=== PATIENT | male | born 1975 | race Caucasian/White ===

== ENCOUNTER 2017-11-06 12:56 | Inpatient (IN) | payer OTHER ==
--- NOTE | 2017-11-06 13:26 | PDOC ---
Attending Attestation - Resident Resident Name: FierroMoshe - ED Attending Attestation I have performed the following: I have examined & evaluated the patient, The case was reviewed & discussed with the resident, I agree w/resident's findings & plan, Exceptions are as noted - HPI HPI: 42 yo M presents with 2 day history of abd pain. He just returned from a trip to [facility], a few of his fellow travelers became ill. He denies f/c, vomiting, diarrhea. He has had nausea and upper abd pain that he describes as colicky, crampy. It waxes and wanes. No prior similar symptoms. No prior history of gallstones. - Physicial Exam PE: GENERAL: Awake, alert, and fully oriented, in no acute distress. Well- appearing. HEAD: No signs of trauma EYES: PERRLA, EOMI, sclera anicteric, conjunctiva clear ENT: Auricles normal inspection, hearing grossly normal, nares patent, oropharynx clear without exudates. Dry mucosa NECK: Normal ROM, supple, no lymphadenopathy, JVD, or masses LUNGS: Breath sounds equal, clear to auscultation bilaterally. No wheezes, and no crackles HEART: Regular rate and rhythm, normal S1 and S2, no murmurs, rubs or gallops ABDOMEN: Soft, +mod RUQ tenderness, normoactive bowel sounds. No guarding, no rebound. No masses EXTREMITIES: Normal range of motion, no edema. No clubbing or cyanosis. No cords, erythema, or tenderness NEUROLOGICAL: Cranial nerves II through XII grossly intact. Normal speech, normal gait SKIN: Warm, Dry, normal turgor, no rashes or lesions noted. - Medical Decision Making Pt with RUQ pain after recent trip. No diarrhea to indicate food poisoning. He drinks daily. Just quit smoking. Will obtain labs including basics and lipase. DDx pancreatitis vs gallstones.
--- NOTE | 2017-11-06 13:40 | PDOC ---
History of Present Illness - General Chief Complaint: Pain Stated Complaint: KEM PAIN Time Seen by Provider: 11/06/17 13:00 History Source: Patient, Spouse ( at bedside for interview.) Exam Limitations: No Limitations - History of Present Illness Travel History: Yes (Returned from [facility] 1 week ago.) Initial Comments: 42 y/o male presenting to ER via private auto at referral of local urgent care. Pt complaining of two days of upper abdominal pain with nausea/vomiting and malaise. Symptoms begin yesterday after eating lunch. Pain was initially diffusely spread across RUQ, LUQ, and epigastrum. Throughout the course of the day, the pain began to localize to RUQ and increase in intensity. Nausea and vomiting persisted; described as non-bloody, non-bilious. Denies constipation and diarrhea; last BM yesterday; continues to pass flatus. Denies fever, chills , or diaphoresis. denies noticing change in pt's skin or eyes. Pt denies previous similar episodes. Pt expressed concern that symptoms may be related to food consumed a week ago while in [facility]. Endorses drinking approx. 3 alcoholic drinks per night. Former smoker, quit 1 week ago. Denies illicit drug use. Hep A vaccination 15 years ago. Past History - Travel Traveled outside of the country in the last 30 days: Yes If so, where?: [facility] - Past Medical History Allergies/Adverse Reactions: Allergies Allergy/AdvReac Type Severity Reaction Status Date / Time No Known Allergies Allergy Verified 11/06/17 12:57 Home Medications: Ambulatory Orders NK [No Known Home Medication] 11/06/17 COPD: No GI Disorders: No Disorders: No Liver Disease: No - Surgical History Abdominal Surgery: No Orthopedic Surgery: Yes (R Knee) - Family Disease History Family Disease History: CA: Mother (Breast Cancer) - Immunization History Immunization Up to Date: Yes - Suicide/Smoking/Psychosocial Hx Smoking History: Former smoker Have you smoked in the past 12 months: Yes If you are a former smoker, when did you quit?: LAST WEEK Information on smoking cessation initiated: Yes 'Breaking Loose' booklet given: 11/06/17 Hx Alcohol Use: Yes (3 DRINKS PER DAY) Drug/Substance Use Hx: No Substance Use Type: Alcohol Lives with/in: spouse/SO Review of Systems - Review of Systems Able to Perform ROS?: Yes Is the patient limited German proficient: No Constitutional: Yes: Malaise, Weakness. No: Chills, Diaphoresis, Fever HEENTM: No: Recent change in vision, Throat Pain Respiratory: No: Cough, Shortness of Breath Cardiac (ROS): No: Chest Pain, Edema, Syncope ABD/GI: Yes: Nausea, Poor Fluid Intake, Vomiting, Abdominal cramping. No: Abd. Pain w/ defecation, Blood Streaked Bowels, Constipated, Diarrhea, Difficulty Swallowing, Rectal Bleeding, Tarry Stools : No: Burning, Dysuria, Discharge, Flank Pain, Hematuria Musculoskeletal: No: Back Pain, Muscle Weakness Integumentary: No: Rash Neurological: Yes: Headache. No: Numbness, Paresthesia Hematologic/Lymphatic: No: Easy Bleeding, Easy Bruising *Physical Exam - Vital Signs Last Vital Signs Temp Pulse Resp BP Pulse Ox 98.6 F 77 20 134/97 98 11/06/17 12:57 11/06/17 12:57 11/06/17 12:57 11/06/17 12:57 11/06/17 12:57 - Physical Exam Comments: Constitutional: Well-developed, well-nourished male in no acute distress and mild discomfort. Found semi-fowlers in hospital bed. Ambulated without assistance to exam room. Alert and oriented x4. Answered all questions appropriately and completely. Speech was non-labored, non-pressured. HEENT: Normocephalic. No obvious external signs of trauma. Hearing grossly normal. No nasal discharge. Sclerae white. Conjunctiva moist and not injected. Oral cavity and pharynx normal with moist mucosal membranes: No inflammation, swelling, exudate, or lesions. Neck is supple, trachea is midline. Cardiovascular: Regular rate and regular rhythm. No murmur, rubs, clicks, or gallops. Peripheral pulses: Radial pulses full. Respiratory: Equal chest rise and fall. Clear to auscultation bilaterally. No stridor, no wheezing, no rhonchi. Gastrointestinal: abdomen is tender to RUQ and epigastrium with guarding and grimace, otherwise soft and non-distended. No hepatosplenemegaly. No pulsatile masses. No overlying skin lesions or obvious signs of trauma. Neuro: Alert and oriented. Moving all four extremities spontaneously. Psych: Affect: appropriate. Mood: normal. Skin: Warm, dry, and intact. No rashes, bruising, or lesions. : No CVA tenderness to R or L. ED Treatment Course - LABORATORY CBC & Chemistry Diagram: 11/06/17 14:18 11/06/17 14:18 Medical Decision Making - Medical Decision Making 42 y/o male complaining of RUQ abdominal pain with nausea and vomiting for the past two days. Denies h/o similar. Afebrile. Vitals unremarkable for tachycardia or hypotension. Physical exam revealed RUQ tenderness with grimace and guarding - positive Bell's sign; no peritoneal signs. Suspect cholecystitis or pancreatitis. Differential to include hepatitis, choledocolethiasis. PUD, and gastritis. Will obtain CBC, CMP, lipase, and RUQ U/ S. Ordered NS bolus and IV tylenol for pain control. CBC revealed mild leukocytosis to 13. CMP remarkable for T. Bili elevated to 1.7. Lipase not elevated. LFTs not elevated. U/S remarkable for mildly thickened gallbladder wall with multiple canaliculi noted. Positive gearcase assembler's Bell's sign. No evidence of biliary duct dilation. Diffuse fatty infiltrates of liver. 11/06/17 15:22 Pt likely experiencing acute cholecystitis. Telephone consult with Dr. Monson who agrees to admit pt to his service at [facility]. Requested order for MRCP without contrast. Ground ambulance transport to be arranged. Discussed results and plan for transfer and admission with pt. Expressed verbal understanding and agreement with plan. Answered all questions. Pt transferred via ambulance to [facility] without further incident. *DC/Admit/Observation/Transfer Diagnosis at time of Disposition: Cholecystitis - Discharge Dispostion Condition at time of disposition: Good Decision to Admit order: Yes - Referrals - Patient Instructions - Post Discharge Activity
[2017-11-06] MEDS ORDERED: ACETAMINOPHEN 1000 MG/100 ML VIAL (NON FORMULARY) IVPB ONE (13:41)
[2017-11-06] MEDS ORDERED: SODIUM CHLORIDE 0.9% 500 ML INFUS.BAG IV ONE (13:41)
[2017-11-06] MEDS ORDERED: ACETAMINOPHEN INJECTION 100 ML IVPB ONE (14:22)
[2017-11-06 14:24] LABS: BASO % 0.2 % (0-2.0); EOS % 0.2 % (0-4.5); HEMOGLOBIN 16.3 GM/dl (11.7-16.9)
[2017-11-06 14:28] LABS: HEMATOCRIT 47.3 % (35.4-49); LYMPH % 11.1 % (8-40); MCH 31.3 pg (25.7-33.7); MCHC 34.5 g/dl (32.0-35.9); MEAN CELL VOLUME 90.8 fl (80-96); MEAN PLT VOLUME 7.7 fl (7.5-11.1); MONO % 8.5 % (3.8-10.2); PLATELET COUNT 293 K/MM3 (134-434); RBC 5.21 M/mm3 (4.00-5.60); RDW 11.7 % (11.9-15.9); WHITE BLOOD COUNT 13.1 K/mm3 (4.0-10.8)
[2017-11-06 14:39] LABS: ALBUMIN 4.4 g/dl (3.5-5.0); ALK PHOS 40 U/L (32-92); ANION GAP 5 (8-16); BILIRUBIN,TOTAL 1.7 mg/dl (0.2-1.0); BLOOD UREA NITROGEN 9 mg/dl (7-18); CALCIUM 8.9 mg/dl (8.4-10.2); CHLORIDE 100 mmol/L (98-107); CO2 30 mmol/L (22-28); CREATININE 0.9 mg/dl (0.6-1.3); GLUCOSE,RANDOM 105 mg/dl (74-106); POTASSIUM 3.6 mmol/L (3.5-5.1); SGOT/AST 29 U/L (10-42); SGPT/ALT 27 U/L (10-40); SODIUM 135 mmol/L (136-145); TOT PROT 7.5 g/dl (6.4-8.3)
[2017-11-06 15:11] LABS: LIPASE 229 U/L (73-393)
--- NOTE | 2017-11-06 16:04 | HP ---
Admitting History and Physical - Admission Chief Complaint: abdominal pain History of Present Illness: 42yo male no significant PMH presents with 2 day history of abd pain. He just returned from a trip to [facility], a few of his fellow travelers became ill. He denies f/c, vomiting, diarrhea. He has had nausea and upper abd pain that he describes as colicky, crampy. It waxes and wanes. No prior similar symptoms. No prior history of gallstones. denies fevers and chills at home, fever 100.7 on eval. Pain after a large lunch. no previous episodes of similar RUQ pain. we were asked to assess. History Source: Patient, Medical Record Limitations to Obtaining History: No Limitations - Smoking History Smoking history: Former smoker Have you smoked in the past 12 months: Yes If you are a former smoker, when did you quit?: LAST WEEK - Alcohol/Substance Use Hx Alcohol Use: Yes (3 DRINKS PER DAY) - Social History ADL: Independent History of Recent Travel: Yes ([facility]) Home Medications - Allergies Allergies/Adverse Reactions: Allergies Allergy/AdvReac Type Severity Reaction Status Date / Time No Known Allergies Allergy Verified 11/06/17 12:57 - Home Medications Home Medications: Ambulatory Orders NK [No Known Home Medication] 11/06/17 Review of Systems - Review of Systems Constitutional: denies: Chills, Fever Eyes: denies: Blurred Vision, Recent Change in Vision HENT: denies: Difficult Swallowing, Throat Pain Neck: denies: Stiffness, Tenderness Cardiovascular: denies: Chest Pain, Palpitations Respiratory: denies: Cough, SOB Gastrointestinal: denies: Abdominal Pain, Constipation, Diarrhea Genitourinary: denies: Discharge, Dysuria Breasts: reports: No Symptoms Reported. denies: Pain Musculoskeletal: denies: Muscle Pain, Muscle Weakness Integumentary: denies: Erythema, Rash, Wound Neurological: denies: Seizure, Syncope Endocrine: denies: Unexplained Weight Gain, Unexplained Weight Loss Hematology/Lymphatic: denies: Easily Bruised, Excessive Bleeding Psychiatric: denies: Anxiety, Depression Physical Examination Vital Signs: Vital Signs Temperature 98.6 F 11/06/17 12:57 Pulse Rate 77 11/06/17 12:57 Respiratory Rate 20 11/06/17 12:57 Blood Pressure 134/97 11/06/17 12:57 O2 Sat by Pulse Oximetry (%) 98 11/06/17 12:57 Constitutional: Yes: Well Nourished, No Distress, Calm Eyes: Yes: Conjunctiva Clear, EOM Intact HENT: Yes: Atraumatic, Normocephalic Neck: Yes: Supple, Trachea Midline Cardiovascular: Yes: Regular Rate and Rhythm, S1, S2 Respiratory: Yes: Regular, CTA Bilaterally Gastrointestinal: Yes: Normal Bowel Sounds, Soft, Tenderness, Tenderness, Epigastrium. No: Tenderness, Rebound ...Rectal Exam: Yes: Deferred Renal/: No: CVA Tenderness - Left, CVA Tenderness - Right Musculoskeletal: No: Muscle Pain, Muscle Weakness Extremities: No: Cool, Cyanosis Edema: No Peripheral Pulses WNL: Yes Peripheral Pulses: Left Radial: 2+, Right Radial: 2+, Left Doralis Pedis: 2+, Right Dorsalis Pedis: 2+ Integumentary: No: Jaundice, Rash Neurological: Yes: Alert, Oriented Psychiatric: Yes: Alert, Oriented Labs: CBC, BMP 11/06/17 14:18 11/06/17 14:18 Imaging - Results Ultrasound: Report Reviewed, Image Reviewed (GB wall thickening) MRI: Report Reviewed, Image Reviewed (acute cholecystitis) Problem List - Problems (1) Calculus of gallbladder with acute cholecystitis Assessment/Plan: 42yo male with acute cholecystitis no sign of choledocholithiasis on MRCP NPO and IVF hydration IV antibiotics per ID OR for Lap Cholecystectomy Discussed with patient risks, benefits and alternatives of laparoscopic possible open cholecystectomy, including but not limited to bleeding, infection , injury to adjacent structures, leak or injury, intraabdominal abscess, incisional hernia, need for further procedures, ; alternatives include antibiotics, delayed or no surgery - risks of this include failure of nonoperative therapy, perforation, sepsis, recurrence, . Patient desires to proceed with operation - will take to OR for above. Informed consent signed for same. Code(s): K80.00 - CALCULUS OF GALLBLADDER W ACUTE CHOLECYST W/O OBSTRUCTION Qualifiers: Biliary obstruction: without biliary obstruction Qualified Code(s): K80.00 - Calculus of gallbladder with acute cholecystitis without obstruction (2) Cholecystitis Code(s): K81.9 - CHOLECYSTITIS, UNSPECIFIED (3) Leukocytosis Code(s): D72.829 - ELEVATED WHITE BLOOD CELL COUNT, UNSPECIFIED Qualifiers: Leukocytosis type: bandemia Qualified Code(s): D72.825 - Bandemia (4) Bilirubinemia Code(s): E80.6 - OTHER DISORDERS OF BILIRUBIN METABOLISM
[2017-11-06] MEDS ORDERED: ONDANSETRON 4 MG/2 ML VIAL IVPUSH PRN (16:20)
[2017-11-06] MEDS: LACTATED RINGERS SOLUTION 1,000 ML IV SCH ×2 (16:46→19:38)
[2017-11-06] MEDS ORDERED: morphine SULFATE 4 MG/ML VIAL ONE (17:14)
[2017-11-06] MEDS ORDERED: ONDANSETRON 4 MG/2 ML VIAL ONE (17:20)
[2017-11-06] MEDS: morphine SULFATE 4 MG/ML VIAL IVPUSH PRN (17:21)
[2017-11-06] MEDS ORDERED: CEFOXITIN SODIUM 2 GM in DEXTROSE 5%-WATER - 100 ML IVPB SCH (18:00)
[2017-11-06 20:13] VITALS: BMI 25.9
[2017-11-06] MEDS: IBUPROFEN 600 MG TABLET (FP) PO PRN (20:42)
[2017-11-07] MEDS ORDERED: DEXTROSE 5%-WATER - 50 ML IVPB ONE ×3 (02:03→16:52)
[2017-11-07] MEDS ORDERED: PIPERACILLIN/TAZOBACTAM 3.375 GM VIAL IVPB ONE ×3 (02:03→16:52)
[2017-11-07] MEDS: PIPERACILLIN/TAZOB 3.375 GM 3.375 GM in DEXTROSE 5%-WATER - 50 ML IVPB SCH ×2 (02:12→10:10)
[2017-11-07] MEDS: morphine SULFATE 4 MG/ML VIAL IVPUSH PRN ×2 (06:05→20:09)
[2017-11-07] MEDS: IBUPROFEN 600 MG TABLET (FP) PO PRN ×2 (06:05→18:58)
[2017-11-07] MEDS: LACTATED RINGERS SOLUTION 1,000 ML IV SCH ×2 (06:30→13:00)
[2017-11-07 08:58] LABS: HEMATOCRIT 44.9 % (35.4-49); HEMOGLOBIN 15.6 GM/dL (11.7-16.9); MCHC 34.8 g/dl (32.0-35.9); MEAN CELL VOLUME 89.1 fl (80-96); MEAN PLT VOLUME 7.7 fl (7.5-11.1); PLATELET COUNT 280 K/MM3 (134-434); RBC 5.04 M/mm3 (4.00-5.60); RDW 12.5 % (11.9-15.9); WHITE BLOOD COUNT 13.1 K/mm3 (4.0-10.0)
--- NOTE | 2017-11-07 08:59 | OP ---
Operative Note - Note: Operative Date: 11/07/17 Pre-Operative Diagnosis: Acute cholecystitis Operation: Laparoscopic Cholecystectomy Findings: Inflammed Gallbladder, critical view identified. counts correct. Post-Operative Diagnosis: Same as Pre-op Surgeon: Ashkan Monson Anesthesiologist/MUSHROOM GROWTH MEDIA MIXER: Charles Pace Anesthesia: General, Local (0.5% MARCAINE 20ml) Estimated Blood Loss (mls): 10 Fluid Volume Replaced (mls): 400 Operative Report Dictated: Yes
[2017-11-07 09:25] LABS: CALCIUM 8.7 mg/dL (8.5-10.1); CHLORIDE 103 mmol/L (98-107); POTASSIUM 4.1 mmol/L (3.5-5.1); SODIUM 140 mmol/L (136-145)
[2017-11-07 09:31] LABS: ALK PHOS 51 U/L (45-117); ANION GAP 10 (8-16); BILIRUBIN,TOTAL 1.6 mg/dL (0.2-1.0); BLOOD UREA NITROGEN 10 mg/dL (7-18); CO2 27 mmol/L (21-32); CREATININE 1.1 mg/dL (0.7-1.3); GLUCOSE,RANDOM 94 mg/dL (74-106); LIPASE 112 U/L (73-393); SGOT/AST 32 U/L (15-37); SGPT/ALT 39 U/L (12-78); TOT PROT 7.3 g/dl (6.4-8.2)
[2017-11-07] MEDS ORDERED: fentaNYL CITRATE 250 MCG/5 ML VIAL ONE (10:32)
[2017-11-07] MEDS ORDERED: MIDAZOLAM HCL 2 MG/2 ML SINGLE DOSE VIAL ONE (10:32)
[2017-11-07] MEDS ORDERED: DEXAMETHASONE SOD PHOSPHATE 4 MG/1 ML VIAL ONE ×2 (10:34→11:39)
[2017-11-07] MEDS ORDERED: ONDANSETRON 4 MG/2 ML VIAL ONE ×2 (10:34→11:39)
[2017-11-07] MEDS ORDERED: PROPOFOL 20 ML ONE (10:35)
[2017-11-07] MEDS ORDERED: LIDOCAINE HCL/PF 2% SDV 5ML VIAL ONE (10:35)
[2017-11-07] MEDS ORDERED: ROCURONIUM BROMIDE 50 MG/5 ML VIAL ONE ×2 (10:36→11:13)
[2017-11-07] MEDS ORDERED: BUPIVACAINE HCL/PF 0.5% (5MG/ML) 10 ML VIAL ONE (11:19)
[2017-11-07] MEDS ORDERED: NEOSTIGMINE METHYLSULFATE 0.5 MG/ML - 10 ML MDV ONE (11:33)
[2017-11-07] MEDS ORDERED: ACETAMINOPHEN INJECTION 100 ML IVPB ONE (11:33)
[2017-11-07] MEDS ORDERED: ACETAMINOPHEN 1000 MG/100 ML VIAL (NON FORMULARY) IVPB ONE (11:37)
[2017-11-07] MEDS ORDERED: BUPIVACAINE HCL/PF (5 MG/ML) 30 ML VIAL IJ ONE ×3 (11:38)
[2017-11-07] MEDS ORDERED: BENZOIN/ALOE VERA/STORAX/TOLU 58 ML BOTTLE ONE (11:47)
[2017-11-07] MEDS ORDERED: ONDANSETRON 4 MG/2 ML VIAL IVPUSH PRN (12:33)
[2017-11-07] MEDS ORDERED: PIPERACILLIN/TAZOB 3.375 GM 3.375 GM in DEXTROSE 5%-WATER - 50 ML IVPB ONE (18:00)
--- NOTE | 2017-11-07 19:02 | CON.ID ---
Consult - History of Present Illness History of Present Illness: 42 y.o. male with no significant PMH presented with c/o upper abdominal pain/n/ v that began 2 days ago, noted after eating. Denied fever/chills/diarrhea. He returned one week ago from a trip to [facility] where he and his family went to a wedding. States at the time several people developed n/v and he assumed he had a gastrointestinal illness. Pt states he drinks alcohol almost daily, about 3 drinks/day. In the ER pt was noted to have a mild leukocytosis and US of abd revealed cholelithiasis and GB wall thickening. Pt is now s/p laparascopic cholecystectomy. Pain is controlled. He has no other specific complaints. 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: Alzheimer's, CVA, Dementia, Migraine, Multiple Sclerosis, Peripheral Neuropathy, Parkinson's, Seizure, Syncope, TIA, Vertigo, Other Cardio/Vascular: No: AFIB, Aneurysm, Aortic Insufficiency, Aortic Stenosis, CAD , CHF, Deep Vein Thrombosis, HTN, Hyperlipdemia, OH, Mitral Insufficiency, Mitral Stenosis, Murmur, Pulmonary Hypertension, Other Pulmonary: No: Asthma, Bronchitis, Cancer, COPD, O2 Dependent, Pneumonia, Previously Intubated, Pulmonary Embolus, Pulmonary Fibrosis, Sleep Apnea, Other Gastrointestinal: No: Ascites, Cancer, Constipation, Crohn's Disease, Diverticulitis, Diverticulosis, Esophageal Varices, Gastritis, GERD, GI Bleed, Hemorrhoids, Hiatal Hernia, Inflamatory Bowel Disease, Irritable Bowel Disease, Pancreatitis, Peptic Ulcer Disease, Ulcerative Colitis, Other Hepatobiliary: No: Cirrhosis, Cholelithiasis, Cholecystitis, Choledocholithiasis , Hepatitis A, Hepatitis B, Hepatitis C, Other Renal/: No: Renal Failure, Renal Inusuff, BPH, Cancer, Hematuria, Hemodialysis , Neurogenic Bladder, Renal Calculi, UTI, Other Heme/Onc: No: Anemia, B12 Deficiency, Bleeding Disorder, Cancer, Current Chemotherapy, Current Radiation Therapy, Hemochromatosis, Hypercoaguable State, Myeloproliferative Synd, Sickle Cell Disease, Sickle Cell Trait, Thrombocytopenia, Other Infectious Disease: No: AIDS, C-Diff, Herpes Zoster, HIV, MRSA, STD's, Tuberculosis, VREF, Other Psych: No: Addictions, Anxiety, Bipolar, Depression, Panic, Psychosis, Schizophrenia, Other Musculoskeletal: No: Bursitis, Chronic low back pain, Hemiparesis, Hemiplegia, Osteoarthritis, Paraplegia, Other Rheumatology: No: Fibromyalgia, Gout, Lupus, Rheumatoid Arthritis, Sarcoidosis, Vasculitis, Other ENT: No: Allergic Rhinitis, Sinusitis, Other Endocrine: No: Merrick's Disease, Serafin's Disease, Diabetes Insipidus, Diabetes Mellitus, Hyperparathyroidism, Hyperthyroidism, Hypothyroidism, Osteopenia, SIADH, Other Dermatology: No: Basal Cell, Cellulitis, Eczema, Melanoma, Psoriasis, Squamous Cell, Other - Past Surgical History Past Surgical History: Yes: None - Alcohol/Substance Use Hx Alcohol Use: Yes (3 DRINKS PER DAY) Number of Drinks Daily: 3 - Smoking History Smoking history: Former smoker Have you smoked in the past 12 months: Yes If you are a former smoker, when did you quit?: LAST WEEK - Social History ADL: Independent History of Recent Travel: Yes ([place]) Home Medications - Allergies Allergies/Adverse Reactions: Allergies Allergy/AdvReac Type Severity Reaction Status Date / Time No Known Allergies Allergy Verified 11/06/17 12:57 - Home Medications Home Medications: Ambulatory Orders NK [No Known Home Medication] 11/06/17 Family Disease History - Family Disease History Family Disease History: CA: Mother (breast) Review of Systems - Review of Systems Constitutional: reports: No Symptoms Eyes: reports: No Symptoms HENT: reports: No Symptoms. denies: Difficult Swallowing, Ear Discharge, Ear Pain, Epistaxis, Gingival Bleeding, Hearing Loss, Mouth Swelling, Nasal Congestion, Ocular Prosthesis, Throat Pain, Toothache, Ringing in Ears, Other Neck: reports: No Symptoms. denies: Decreased ROM, Lumps, Pain on Movement, Stiffness, Swollen Glands, Tenderness, Other Cardiovascular: reports: No Symptoms. denies: Chest Pain, Edema, Palpitations, Shortness of Breath, Other Respiratory: reports: No Symptoms. denies: Cough, Exercise Intolerance, Hemoptysis, Orthopnea, PND, Snoring, SOB, SOB on Exertion, Wheezing, Other Gastrointestinal: reports: Abdominal Pain, Nausea. denies: No Symptoms, Bloating, Constipation, Diarrhea, Dysphagia, Indigestion, Melena, Rectal Bleeding, Vomiting, Vomiting Blood, Other Genitourinary: reports: No Symptoms. denies: Burning, Discharge, Dysuria, Flank Pain, Frequency, Hematuria, Incontinence, Lesions, Menses, Pain, Testicular Mass, Testicular Pain, Testicular Swelling, Urgency, Vaginal Bleeding , Other Breasts: reports: No Symptoms Reported. denies: See HPI, Breast Implants, Discharge from Nipple, Lumps, Pain, Skin Changes, Other Musculoskeletal: reports: No Symptoms Integumentary: reports: No Symptoms. denies: Blister, Bruising, Change in Color , Eczema, Erythema, Incision, Lesions, Lump, Pallor, Pruritis, Rash, Wound, Other Neurological: reports: No Symptoms. denies: Change in LOC, Change in Speech, Confusion, Dizziness, Headache, Incoordination, Numbness, Parasthesia, Pre- Existing Deficit, Seizure, Syncope, Tremors, Unsteady Gait, Weakness, Other Endocrine: reports: No Symptoms. denies: Excessive Sweating, Flushing, Increased Hunger, Increased Thirst, Intolerance to Cold, Intolerance to Heat, Unexplained Weight Gain, Unexplained Weight Loss, Other Hematology/Lymphatic: reports: No Symptoms. denies: Easily Bruised, Excessive Bleeding, Swollen Glands, Other Psychiatric: reports: No Symptoms. denies: Altered Sleep Pattern, Anxiety, Depression, Hallucinations, Panic, Paranoia, Suicidal, Other Physical Exam Vital Signs: Vital Signs Temperature 98.6 F 11/07/17 13:15 Pulse Rate 80 11/07/17 13:15 Respiratory Rate 20 11/07/17 13:15 Blood Pressure 121/66 11/07/17 13:15 O2 Sat by Pulse Oximetry (%) 94 L 11/07/17 13:15 Constitutional: Yes: No Distress, Calm Eyes: Yes: Conjunctiva Clear HENT: Yes: Atraumatic Neck: Yes: Supple Cardiovascular: Yes: Regular Rate and Rhythm Respiratory: Yes: Regular Gastrointestinal: Yes: Tenderness Renal/: Yes: WNL Extremities: Yes: WNL Edema: No Integumentary: Yes: WNL Wound/Incision: Yes: Dressing Dry and Intact Neurological: Yes: Alert, Oriented Labs: CBC, BMP 11/07/17 08:00 11/07/17 08:00 Imaging - Results Ultrasound: Report Reviewed MRI: Report Reviewed Problem List - Problems (1) Calculus of gallbladder with acute cholecystitis Code(s): K80.00 - CALCULUS OF GALLBLADDER W ACUTE CHOLECYST W/O OBSTRUCTION Qualifiers: Biliary obstruction: without biliary obstruction Qualified Code(s): K80.00 - Calculus of gallbladder with acute cholecystitis without obstruction (2) Leukocytosis Code(s): D72.829 - ELEVATED WHITE BLOOD CELL COUNT, UNSPECIFIED Qualifiers: Leukocytosis type: bandemia Qualified Code(s): D72.825 - Bandemia Assessment/Plan 42 y.o. male with no PMH presenting with upper abd pain/nausea, fever, leukocytosis Acute cholecystitis s/p Lap cholecystectomy POD#0 -- started on Zosyn -- monitor wbc/temps -- monitor for tolerance as advance diet will f/u Thank you
[2017-11-08] MEDS ORDERED: DEXTROSE 5%-WATER - 50 ML IVPB ONE ×3 (01:35→17:27)
[2017-11-08] MEDS ORDERED: PIPERACILLIN/TAZOBACTAM 3.375 GM VIAL IVPB ONE ×3 (01:35→17:27)
[2017-11-08] MEDS: PIPERACILLIN/TAZOB 3.375 GM 3.375 GM in DEXTROSE 5%-WATER - 50 ML IVPB SCH ×3 (02:29→18:03)
[2017-11-08] MEDS: LACTATED RINGERS SOLUTION 1,000 ML IV SCH ×2 (06:14→12:35)
[2017-11-08] MEDS ORDERED: PT OWN MED DRAWER 7, Y5N ONE (09:08)
[2017-11-08] MEDS: IBUPROFEN 600 MG TABLET (FP) PO PRN (09:19)
[2017-11-08] MEDS: morphine SULFATE 4 MG/ML VIAL IVPUSH PRN ×2 (09:19→19:43)
[2017-11-08 09:26] LABS: ANION GAP 7 (8-16); BLOOD UREA NITROGEN 10 mg/dL (7-18); CALCIUM 8.1 mg/dL (8.5-10.1); CHLORIDE 105 mmol/L (98-107); CO2 30 mmol/L (21-32); GLUCOSE,RANDOM 89 mg/dL (74-106); POTASSIUM 3.9 mmol/L (3.5-5.1); SGOT/AST 38 U/L (15-37); SGPT/ALT 53 U/L (12-78); SODIUM 142 mmol/L (136-145)
[2017-11-08 09:43] LABS: ALK PHOS 42 U/L (45-117); BILIRUBIN,TOTAL 0.7 mg/dL (0.2-1.0); CREATININE 0.9 mg/dL (0.7-1.3); TOT PROT 6.1 g/dl (6.4-8.2)
--- NOTE | 2017-11-08 10:03 | OP ---
DATE OF OPERATION: 11/07/2017 PREOPERATIVE DIAGNOSIS: Acute cholecystitis. POSTOPERATIVE DIAGNOSIS: Acute cholecystitis. PROCEDURE: Laparoscopic cholecystectomy. ATTENDING SURGEON: Ashkan Monson MD ACCOUNT GENERAL MANAGER: No one. ANESTHESIA: Charles Pace MD ANESTHESIA TYPE: General with local; local consisted of 0.5% Marcaine, 20 mL given at the port sites. ESTIMATED BLOOD LOSS: 10 mL. INTRAVENOUS FLUIDS: 400 mL. SPECIMEN: Gallbladder with stones. BRIEF FINDINGS: Inflamed gallbladder. Critical view identified at the hepatic plate. Minimal bile spillage. COUNTS: Correct postoperatively. INDICATION: The patient is a 42-year-old male presenting with right upper quadrant pain, nausea, and vomiting for a period of 2 days after a return trip from [facility]. His onset of pain started after a meal. He was counseled regarding risks, benefits, alternatives of cholecystectomy after it was identified on ultrasound that he had acute cholecystitis. MRCP was completed, identifying no choledocholithiasis. He signed informed consent and was then taken for the procedure. PROCEDURE: The patient was brought to the operating room and placed in supine position on the operating table with the right arm tucked and the left arm extended 90 degrees perpendicular to the body's axis. The right upper quadrant was clipped, prepped, and draped into a standard surgical field. The patient had bilateral lower extremity SCDs placed to compression. He was induced with general anesthesia, endotracheally intubated, at which point we proceeded first with a formal timeout, identifying the operative site and procedure. We then proceeded with a supraumbilical Nick approach. After the patient was anesthetized, a No. 15 blade scalpel was used to incise the skin. It was deepened and widened through subcutaneous tissue with Bovie cautery to the anterior rectus fascia. It was identified and elevated. The fascia was then scored with Bovie and entered bluntly into the abdomen. A finger was used to clear anterior adhesions. We then proceeded with instillation of a 12-mm Nick trocar into the abdomen. Pneumoperitoneum up to 15 mmHg was established, at which point we proceeded with inspection of the abdomen with a 5-mm, 30-degree scope. There appeared to be an atraumatic entry. We then proceeded with instillation of additional operative ports, 5 mm, 1 at the subxiphoid position and 2 in the right lateral abdomen. After identifying the dome of the gallbladder, the gallbladder was retracted cranially and towards the left shoulder. We then proceeded with dissection of the cystic structures. The cystic duct and artery were identified as they coursed to the gallbladder after planes were developed posterior. The cystic duct was first identified, then the cystic artery. When the critical view could be established, the structures were then clipped with 5-mm clips from the xiphoid position, then transected with Endoshears. The gallbladder itself was elevated from the hepatic bed with cautery with care taken not to spill any bile. Care was then taken to completely remove the gallbladder from the liver's bed and was retrieved from the abdomen after resighting the camera to the subxiphoid position from the umbilicus with an EndoCatch bag. The EndoCatch bag was removed, along with the gallbladder and stone. It was passed off for final pathologic diagnosis. We then returned our attention to the hepatic bed. There was a small amount on the hepatic bed that required cauterization with Bovie cautery. We proceeded with hemostasis. Once assured, the site was then irrigated of bilious drainage as well as clots. This was suctioned from the abdomen; a total of approximately 10 mL. We proceeded then with restoring the patient to a level position and inserting omentum at the site. The umbilical port was then ablated with 0 Vicryl in a [id number]. The skin was then cleaned. Sterile dressings were placed after the skin was closed with a 4-0 Vicryl in subcuticular fashion. The patient was awoken from general anesthesia, having tolerated the procedure well, and was given instructions to follow up in a period of 1 week after discharge. He was admitted for IV antibiotics. He was stable throughout. Counts were correct postoperatively. MD BUD Lowery/[id number]
--- NOTE | 2017-11-08 12:09 | PN ---
Progress Note, Physician Chief Complaint: abdominal pain History of Present Illness: Patient has been stable postoperatively, pain is moderately controlled, voiding , ambulating and tolerating diet. Nausea from yesterday is tolerable today. He is afebrile WBC is normalizing ast is tbili. - Current Medication List Current Medications: Active Medications Lactated Ringer's (Lactated Ringers Solution) 1,000 mls @ 125 mls/hr IV ASDIR OLIVIA Last Admin: 11/08/17 06:14 Dose: 125 mls/hr Piperacillin Sod/Tazobactam (Sod 3.375 gm/ Dextrose) 50 mls @ 100 mls/hr IVPB Q8H-IV OLIVIA; Protocol Last Admin: 11/08/17 09:20 Dose: 100 mls/hr Ibuprofen (Motrin -) 600 mg PO Q6H PRN PRN Reason: PAIN LEVEL 1-5 Last Admin: 11/08/17 09:19 Dose: 600 mg Morphine Sulfate (Morphine Sulfate) 4 mg IVPUSH Q4H PRN PRN Reason: PAIN LEVEL 7 - 10 Last Admin: 11/08/17 09:19 Dose: 4 mg Ondansetron HCl (Zofran Injection) 4 mg IVPUSH Q6H PRN PRN Reason: NAUSEA Last Admin: 11/07/17 14:00 Dose: 4 mg - Objective Vital Signs: Vital Signs Temperature 98.3 F 11/08/17 07:00 Pulse Rate 80 11/08/17 07:00 Respiratory Rate 20 11/08/17 07:00 Blood Pressure 124/67 11/08/17 07:00 O2 Sat by Pulse Oximetry (%) 96 11/07/17 21:00 Constitutional: Yes: Well Nourished, No Distress, Calm Eyes: Yes: Conjunctiva Clear, EOM Intact HENT: Yes: Atraumatic, Normocephalic Neck: Yes: Supple, Trachea Midline Cardiovascular: Yes: Regular Rate and Rhythm, S1, S2 Respiratory: Yes: Regular, CTA Bilaterally Gastrointestinal: Yes: Normal Bowel Sounds, Soft ...Rectal Exam: Yes: Deferred Genitourinary: No: CVA Tenderness - Left, CVA Tenderness - Right Extremities: No: Cool, Cyanosis Wound/Incision: Yes: Clean/Dry, Well Approximated, Dressing Dry and Intact Neurological: Yes: Alert, Oriented Psychiatric: Yes: Alert Labs: CBC, BMP 11/07/17 08:00 11/08/17 08:08 Problem List - Problems (1) Calculus of gallbladder with acute cholecystitis Assessment/Plan: 42yo male with acute cholecystitis POD#1 s/p Lap Cholecystectomy Diet as telerated OOB and ambulate adequate analgesia continue IV antibiotics per ID D/C plan for Thursday 11/09 Code(s): K80.00 - CALCULUS OF GALLBLADDER W ACUTE CHOLECYST W/O OBSTRUCTION Qualifiers: Biliary obstruction: without biliary obstruction Qualified Code(s): K80.00 - Calculus of gallbladder with acute cholecystitis without obstruction (2) Cholecystitis Code(s): K81.9 - CHOLECYSTITIS, UNSPECIFIED (3) Leukocytosis Code(s): D72.829 - ELEVATED WHITE BLOOD CELL COUNT, UNSPECIFIED Qualifiers: Leukocytosis type: bandemia Qualified Code(s): D72.825 - Bandemia (4) Bilirubinemia Code(s): E80.6 - OTHER DISORDERS OF BILIRUBIN METABOLISM
--- NOTE | 2017-11-08 13:27 | PN ---
Progress Note, Physician History of Present Illness: Pt doing well. He has been afebrile with mild abdominal tenderness able tolerating food so far. No vomiting today. Has flatus but has not had a BM. - Current Medication List Current Medications: Active Medications Amino Acids (Prosource No Carb Liquid Pkt) 30 ml PO BID@0800,1730 OLIVIA Lactated Ringer's (Lactated Ringers Solution) 1,000 mls @ 125 mls/hr IV ASDIR OLIVIA Last Admin: 11/08/17 06:14 Dose: 125 mls/hr Piperacillin Sod/Tazobactam (Sod 3.375 gm/ Dextrose) 50 mls @ 100 mls/hr IVPB Q8H-IV OLIVIA; Protocol Last Admin: 11/08/17 09:20 Dose: 100 mls/hr Ibuprofen (Motrin -) 600 mg PO Q6H PRN PRN Reason: PAIN LEVEL 1-5 Last Admin: 11/08/17 09:19 Dose: 600 mg Morphine Sulfate (Morphine Sulfate) 4 mg IVPUSH Q4H PRN PRN Reason: PAIN LEVEL 7 - 10 Last Admin: 11/08/17 09:19 Dose: 4 mg Ondansetron HCl (Zofran Injection) 4 mg IVPUSH Q6H PRN PRN Reason: NAUSEA Last Admin: 11/07/17 14:00 Dose: 4 mg - Objective Vital Signs: Vital Signs Temperature 98.3 F 11/08/17 07:00 Pulse Rate 80 11/08/17 07:00 Respiratory Rate 20 11/08/17 07:00 Blood Pressure 124/67 11/08/17 07:00 O2 Sat by Pulse Oximetry (%) 96 11/07/17 21:00 Constitutional: Yes: No Distress, Calm Cardiovascular: Yes: Regular Rate and Rhythm Respiratory: Yes: Regular, CTA Bilaterally Gastrointestinal: Yes: Normal Bowel Sounds, Soft Extremities: Yes: WNL Edema: No Wound/Incision: Yes: Dressing Dry and Intact Neurological: Yes: Alert, Oriented Labs: CBC, BMP 11/07/17 08:00 11/08/17 08:08 Problem List - Problems (1) Calculus of gallbladder with acute cholecystitis Code(s): K80.00 - CALCULUS OF GALLBLADDER W ACUTE CHOLECYST W/O OBSTRUCTION Qualifiers: Biliary obstruction: without biliary obstruction Qualified Code(s): K80.00 - Calculus of gallbladder with acute cholecystitis without obstruction (2) Leukocytosis Code(s): D72.829 - ELEVATED WHITE BLOOD CELL COUNT, UNSPECIFIED Qualifiers: Leukocytosis type: bandemia Qualified Code(s): D72.825 - Bandemia Assessment/Plan 42 y.o. male with no PMH presenting with upper abd pain/nausea, fever, leukocytosis Acute cholecystitis s/p Lap cholecystectomy POD#1 -- continue Zosyn for today -- repeat cbc ordered -- continue monitor for tolerance of diet pt currently stable, afebrile
[2017-11-08] MEDS: AMINO ACIDS/PROTEIN HYDROLYS 30 ML LIQUID.PKT PO SCH (18:03)
[2017-11-09] MEDS ORDERED: PIPERACILLIN/TAZOBACTAM 3.375 GM VIAL IVPB ONE ×2 (01:34→09:11)
[2017-11-09] MEDS ORDERED: DEXTROSE 5%-WATER - 50 ML IVPB ONE ×2 (01:35→09:12)
[2017-11-09] MEDS: PIPERACILLIN/TAZOB 3.375 GM 3.375 GM in DEXTROSE 5%-WATER - 50 ML IVPB SCH ×2 (01:45→09:15)
[2017-11-09 07:32] LABS: BASO % 0.5 % (0-2.0); EOS % 2.3 % (0-4.5); HEMATOCRIT 37.1 % (35.4-49); HEMOGLOBIN 13.2 GM/dL (11.7-16.9); LYMPH % 22.7 % (8-40); MCH 31.5 pg (25.7-33.7); MCHC 35.6 g/dl (32.0-35.9); MEAN CELL VOLUME 88.5 fl (80-96); MEAN PLT VOLUME 7.4 fl (7.5-11.1); MONO % 9.6 % (3.8-10.2); NEUT % 64.9 % (42.8-82.8); PLATELET COUNT 255 K/MM3 (134-434); RBC 4.19 M/mm3 (4.00-5.60); RDW 12.4 % (11.9-15.9)
[2017-11-09 07:51] LABS: ALK PHOS 42 U/L (45-117); ANION GAP 6 (8-16); BILIRUBIN,TOTAL 0.6 mg/dL (0.2-1.0); BLOOD UREA NITROGEN 10 mg/dL (7-18); CALCIUM 8.3 mg/dL (8.5-10.1); CHLORIDE 105 mmol/L (98-107); CO2 31 mmol/L (21-32); CREATININE 0.9 mg/dL (0.7-1.3); GLUCOSE,RANDOM 88 mg/dL (74-106); POTASSIUM 4.1 mmol/L (3.5-5.1); SGOT/AST 29 U/L (15-37); SGPT/ALT 51 U/L (12-78); SODIUM 142 mmol/L (136-145)
[2017-11-09] MEDS: IBUPROFEN 600 MG TABLET (FP) PO PRN (07:56)
[2017-11-09] MEDS: AMINO ACIDS/PROTEIN HYDROLYS 30 ML LIQUID.PKT PO SCH (07:56)
--- NOTE | 2017-11-09 08:27 | DS ---
Physical Examination Vital Signs: Vital Signs Temperature 98.1 F 11/09/17 06:00 Pulse Rate 67 11/09/17 06:00 Respiratory Rate 18 11/09/17 06:00 Blood Pressure 146/82 11/09/17 06:00 O2 Sat by Pulse Oximetry (%) 96 11/08/17 21:00 Vital Signs Period Temp Pulse Resp BP Sys/Koo Pulse Ox Last 24 Hr 98.1 F-98.7 F 57-67 18-21 125-146/69-82 96-96 Findings/Remarks: Stable. Afebrile, nausea resolved pain adequately controlled and cleared with ID for a PO regimen Constitutional: Yes: Well Nourished, No Distress, Calm Eyes: Yes: Conjunctiva Clear, EOM Intact HENT: Yes: Atraumatic, Normocephalic Neck: Yes: Supple, Trachea Midline Cardiovascular: Yes: Regular Rate and Rhythm, S1, S2 Respiratory: Yes: Regular, CTA Bilaterally Gastrointestinal: Yes: Normal Bowel Sounds, Soft ...Rectal Exam: Yes: Deferred Renal/: No: CVA Tenderness - Left, CVA Tenderness - Right Extremities: No: Cool, Cyanosis Edema: No Peripheral Pulses WNL: Yes Peripheral Pulses: Left Radial: 2+, Right Radial: 2+, Left Doralis Pedis: 2+, Right Dorsalis Pedis: 2+ Integumentary: No: Jaundice, Rash, Skin Tear Wound/Incision: Yes: Clean/Dry, Well Approximated, Steri Strips, Open to air Neurological: Yes: Alert, Oriented Psychiatric: Yes: Alert, Oriented Labs: CBC, BMP 11/09/17 06:00 11/09/17 06:00 Discharge Summary Reason For Visit: CHOLECYSTITIS Current Active Problems Bilirubinemia (Acute) Calculus of gallbladder with acute cholecystitis (Acute) Cholecystitis (Acute) Leukocytosis (Acute) Procedures: Principal: Lap Cholecystectomy Hospital Course: Admitted for surgery, uneventful procedure. Post operative course complicated by intractable nausea and vomiting. Stable for discharge today. Condition: Improved - Instructions Diet, Activity, Other Instructions: Postoperative instructions: You had a laparoscopic cholecystectomy on 11/07/[address] Ashkan Monson of [facility]. Activity: Resume your usual activities gradually, but no heavy exertion or lifting more than 10-15 pounds for 1 month. Remove dressings 48 hours after surgery; sticky tapes underneath will fall off by themselves. You may shower daily starting then, just pat the incision areas dry. No bath or swimming until skin incisions have healed. Eat lightly at first, but advance to your usual diet as tolerated. Pain: For pain, you may use and alternate Tylenol (acetaminophen) 1-2 pills and/ or ibuprofen 200 mg (1-3 pills) every 6 hours each as needed; this means that you can take one OR the other at 3-hour intervals. If you are prescribed a Tylenol/narcotic combination for severe pain, use it instead of plain Tylenol as needed and switch back when your pain starts decreasing. Do not take more than 4000mg of acetaminophen in a day. Take medications as prescribed or indicated on the labeling. Follow-up: Call Dr. Monson' office at [phone] to make your postop appointment (Thursday in approximately 2 weeks after surgery). Clinic is held in the [facility] on the first floor of [facility]. Call the office if you have: * increasing pain not responsive to pain medication * fever of 101F or higher * vomiting * unusual or increasing bleeding or drainage from wounds * increasing redness or swelling at wound sites * inability to urinate Also, see your primary medical doctor within 1-2 weeks. Referrals: Ashkan Monson MD [Staff Physician] - Disposition: HOME - Home Medications Comprehensive Discharge Medication List: Ambulatory Orders Amox-Tr/K Cl [Augmentin - 875Mg Tablet] 1 tab PO BID #14 tablet 11/08/17 Oxycodone HCl/Acetaminophen [Percocet 5/325 -] 1 - 2 tab PO Q6H #40 tab MDD 5
[2017-11-09 11:04] VITALS: BP 127/80; PULSE 78; TEMP 98.9
--- NOTE | 2017-11-10 13:55 | PATH ---
Surgical Pathology Report Patient Name: JULI COVARRUBIAS Med. Rec. #: [id number] /Age/Gender: 1975 (Age: 42) / M Account: [id number] Location: [address] [address] Taken: 11/07/2017 Received: 11/09/2017 Reported: 11/10/2017 Physicians: Ashkan Monson M.D. Specimen(s) Received GALLBLADDER Clinical History Acute cholecystitis Final Diagnosis GALLBLADDER, LAPAROSCOPIC CHOLECYSTECTOMY: ACUTE AND CHRONIC NECROTIZING CHOLECYSTITIS WITH CHOLELITHIASIS. SCANT ADHERENT FRAGMENT OF CAUTERIZED HEPATIC PARENCHYMA. Electronically Signed Layla Domingo M.D. Gross Description Received in formalin, labeled "gallbladder," is a 10.2 x 3.6 x 2.6 cm. gallbladder with a 0.2 cm. in length portion of cystic duct attached. The outer surface is barnes-back with multiple defects, attached exudate and varies from smooth to shaggy. The lumen contains abundant yellow-green, irregular choleliths ranging from 0.3-1.1 cm in greatest dimension. The mucosa is dark green and focally necrotic. The wall of the gallbladder ranges from 0.1-0.4 cm. in thickness. [employer] sections are submitted in one cassette. 11/09/2017 [facility]/09/2017
== END 2017-11-09 10:29 | disposition home or self-care (01) | DRG 419 ==
LOC: FER 12:56 → J6S 18:30
PROC: 0FT44ZZ Resection of Gallbladder, Percutaneous Endoscopic Approach (ICD-10-PCS; principal; 2017-11-07 10:00)
DX: K80.12 Calculus of gallbladder with acute and chronic cholecystitis without obstruction (principal); D72.829 Elevated white blood cell count, unspecified; E80.6 Other disorders of bilirubin metabolism; K76.0 Fatty (change of) liver, not elsewhere classified
CPT/HCPCS: 36415; 74181-TC; 76705-TC; 80053; 83690; 85025; 85027; 88304-TC; 94010; 94760; 99282-25; J0131